=== PATIENT | male | born 1975 | race Caucasian/White ===

== ENCOUNTER 2019-10-09 09:17 | Day surgery (SDC) | payer OTHER, SELFPAY ==
--- NOTE | 2019-10-09 | PATH_ITS ---
[facility] Accession Number: [id number] . 01 Material submitted: . PART A: colon - ASCENDING COLON POLYP X4 PART B: colon - TRANSVERSE COLON X4 PART C: colon - DESCENDING COLON POLYP . 02 Diagnosis: A. Ascending Colon, Polyps: Colonic mucosa with prominent benign lymphoid aggregates x3. Negative for serrated lesion, dysplasia or malignancy. Additional step sections examined. . B. Transverse Colon, Polyps: Fragments of tubular adenoma (four polyps removed). . C. Descending Colon, Polyp: Colonic mucosa with prominent benign lymphoid aggregate. Negative for serrated lesion, dysplasia or malignancy. Additional step sections examined. [facility] 10/11/2019 1305 Local . 02 Comment: Part A: One tissue fragment did not survive histologic processing. . 02 Electronically signed: . Alex Thompson MD, PhD, Pathologist NPI- [id number] . 01 Gross description: . Part A: ASCENDING COLON POLYP X4: Received in formalin are 4 fragment(s) of nash, soft tissue measuring 0.1 x 0.1 x 0.1 cm to 0.3 x 0.2 x 0.2 cm submitted entirely in 1 cassette(s) Part B: TRANSVERSE COLON X4: Received in formalin are multiple fragment(s) of nash, soft tissue measuring 0.1 x 0.1 x 0.1 cm to 0.3 x 0.2 x 0.2 cm submitted entirely in 1 cassette(s) Part C: DESCENDING COLON POLYP: Received in formalin is 1 fragment(s) of nash, soft tissue measuring 0.4 x 0.3 x 0.2 cm submitted entirely in 1 cassette(s) /[email or web address] 10/09/2019 2229 Local . 02 Pathologist provided ICD-10: D12.3, K63.5 . 02 CPT . 135973, 369678, [id number] Performed at: 01 [facility] [address] [place] [address], [place], [place] [id number] MD Celestine Yusuf MD Phone: [phone] Performed at: 02 [facility] [address] [place], [place] [id number] MD Rafaela Alvarado MD Phone: [phone]
--- NOTE | 2019-10-09 08:14 | PM.HP.1 ---
History of Present Illness History of Present Illness Date Patient Seen: 10/09/19 Chief complaint: [id number] Narrative: Patient presented for colonoscopy. Seen in the office 06/04/19 for change in bowel habits, constipation and family history of colon polyps (Mother in her 50s). Meds Home Medications and Allergies Home Medications Medication Instructions Recorded Confirmed Type gabapentin 300 mg PO BEDTIME 10/09/19 10/09/19 History Allergies Allergy/AdvReac Type Severity Reaction Status Date / Time No Known Drug Allergies Allergy Verified 10/09/19 09:49 Review of Systems Review of Systems ROS Unobtainable: All systems reviewed & are unremarkable except as noted in HPI and below Exam Const General: cooperative, healthy appearing, comfortable, well developed and well groomed Nutritional Appearance: average body habitus Orientation: alert, awake and oriented x3 Resp Effort & Inspection: normal respiratory effort and able to speak in complete sentences Auscultation: clear to auscultation bilaterally Cardio Rate: regular rate Rhythm: regular rhythm Heart Sounds: S1 normal and S2 normal GI Palpation: soft and No tender Auscultation: normal bowel sounds Extrem Right lower extremity: no edema Left lower extremity: no edema Assessment & Plan Assessment & Plan narrative: 1. Change in bowel habits 2. Constipation 3. Family history of colon polyps - Colonoscopy today, further recommendations to follow
[2019-10-09 09:50] VITALS: BP 120/82; PULSE 62; RESP 16; TEMP 36.2; O2SAT 99; BMI 29.9
[2019-10-09] MEDS: SODIUM CHLORIDE 0.9% 1,000 ML 70 ML IV (10:10)
[2019-10-09] MEDS: MIDAZOLAM 5 MG/5 ML VIAL IV (11:45)
[2019-10-09] MEDS: fentaNYL 250 MCG/5 ML INJ IV (11:46)
[2019-10-09 11:51] VITALS: BP 123/88; PULSE 63; RESP 12; TEMP 36.9; O2SAT 99
--- NOTE | 2019-10-09 11:52 | PM.OP.ENDO ---
Operative Date/Time/Diagnoses Date of procedure: 10/09/19 Time of procedure: 11:27 Procedure Notes Procedure in detail: Surgeon: Lorene Renae DO Procedure: Colonoscopy with polypectomy Preoperative diagnosis: 1. Change in bowel habits 2. Constipation 3. Family history colon polyps (mother <60) Postoperative diagnosis: 1. Four 2-3 mm polyps in the ascending colon 2. Four 2-3 mm polyps in the transverse colon 3. One 3 mm polyp in the descending colon 4. Mild internal hemorrhoids, grade 1 Medications: Conscious sedation using 5 mg IV of Midazolam and 150 mcg IV of Fentanyl Preanesthesia Assessment An H and P was performed/updated and the Px?s ASA class is 1. The procedure was discussed in detail with the patient. The potential risks and complications including infection, bleeding, missed lesions, perforation, need for surgery in case of perforation, prolonged hospital stay, and were explained. A brief question and answer period was allotted and once all questions were answered, informed consent was obtained. The patient was brought back to the procedure room and placed on standard monitoring. The patient?s vital signs were monitored continuously throughout the entire procedure. Prior to starting, a timeout was performed to confirm the patient?s identity, allergies, medications, and procedure. Procedure in detail The patient was placed in left lateral decubitus position and once adequate sedation was obtained a [place] was performed. The digital rectal examination did not reveal any palpable lesions. The tip of the colonoscope was placed in the anal canal and advanced without difficulty all the way to the cecum which was identified by the appendiceal orifice and the ileocecal valve. Careful examination of all stauffer of the colon was performed with irrigation of any residual stool. - 4 2-3mm polyps removed with Jumbo forceps in the ascending colon - 4 2-3mm polyps removed with Jumbo forceps in the transverse colon - 3mm polyp removed with Jumbo forceps from the descending colon - Grade 1 internal hemorrhoids noted on retroflexion Normal colon mucosa Normal terminal ileum The patient tolerated the procedure well and will be brought back to the recovery area to be discharged once criteria are met. The prep was judged to be adequate to identify polyps greater than 5 mm. The withdrawal time was 11min. The total physician intraservice time was 19min. Complications There were no complications and estimated blood loss was minimal. Recommendations: Resume previous diet Continue outPx medications Follow up pathology results Repeat colonoscopy after pathology results are reviewed Office follow up if persistent symptoms An emergency contact number was given to the patient for any complications related to the procedure
[2019-10-09 11:56] VITALS: BP 121/89; PULSE 82; RESP 14; O2SAT 99
[2019-10-09 12:13] VITALS: BP 114/71; PULSE 62; RESP 15; TEMP 36.6; O2SAT 100
== END 2019-10-09 12:13 | disposition home or self-care (01) ==
PROVIDERS: Visit Provider Student in an Organized Health Care Education/Training Program
PROC: 0DJD8ZZ Inspection of Lower Intestinal Tract, Via Natural or Artificial Opening Endoscopic (ICD-10-PCS; CPT 45378; principal; 2019-10-09 10:30)
DX: K64.0 First degree hemorrhoids (principal); D12.3 Benign neoplasm of transverse colon
CPT/HCPCS: 45380; J2250; J3010